=== PATIENT | female | born 1975 | race Caucasian/White ===

== ENCOUNTER 2017-08-13 23:58 | Emergency (ER) | payer OTHER ==
[2017-08-14] MEDS ORDERED: Morphine VIAL* 4 MG/ML VIAL (1 ml vial) IV PRN (01:09)
[2017-08-14] MEDS ORDERED: NS 0.9% 1000 ML* 1,000 ML IV ONE (01:09)
[2017-08-14] MEDS ORDERED: Metoclopramide IV* 5 MG/ML 2 ML VIAL IV ONE (01:09)
[2017-08-14 01:30] LABS: ABS Basophils 0 10^3/ul (0-0.2); ABS Eosinophils 0.1 10^3/ul (0-0.6); ABS Lymphocytes 1.4 10^3/ul (1.0-4.8); ABS Monocytes 0.5 10^3/ul (0-0.8); ABS Neutrophils 3.9 10^3/ul (1.5-7.7); ABS Nucleated RBC 0 10^3/ul; Hematocrit 37 % (35-47); Hemoglobin 12.4 g/dl (12.0-16.0); Lymphocyte % 24.3 % (25-47); Mean Corpuscular HGB Conc 34 g/dl (31-36); Mean Corpuscular Hemoglobin 31 pg (27-31); Mean Corpuscular Volume 90 fL (80-97); Mean Platelet Volume 8.4 um3 (7.4-10.4); Nucleated Red Blood Cells % 0; Platelet Count 243 10^3/ul (150-450); Red Blood Count 4.06 10^6/ul (4.0-5.4); Red Cell Distribution Width 14 % (10.5-15)
[2017-08-14 01:39] LABS: INR 0.88 (0.77-1.02)
[2017-08-14 01:48] LABS: EGFR Non-African American 70.1 (>60)
[2017-08-14 02:27] LABS: Urine Appearance Clear; Urine Blood Negative (Negative); Urine Color Yellow; Urine Ketones Negative (Negative); Urine Protein Negative (Negative); Urine Specific Gravity 1.013 (1.010-1.030); Urine Urobilinogen Negative (Negative)
[2017-08-14] MEDS ORDERED: Iohexol 300* (CONTRAST) 10 ML SDV IV ONE (03:47)
[2017-08-14 06:36] VITALS: BP 104/68
--- NOTE | 2017-08-14 06:39 | ED ---
Stef Damon Rebecca, scribed for Gustavo Alvarez MD on 08/14/17 at 0111 . Abdominal Pain/Female - HPI Summary HPI Summary: Pt is a 42 y/o F who presents to ED c/o abdominal pain. 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 Pain is in the umbilical region with occasional radiation upward and waxes and wanes in intensity. Sx aggravated and alleviated by nothing. Additionally c/ o nausea. Denies vomiting and dysuria. PSHx uterine ablation and C-sections x2. - History of Current Complaint Chief Complaint: EDAbdPain Stated Complaint: ABD PAIN Time Seen by Provider: 08/14/17 01:01 Hx Obtained From: Patient Hx Last Menstrual Period: 09/07/12 Onset/Duration: Lasting Hours, Still Present Severity Currently: Severe Pain Intensity: 9 Pain Scale Used: 0-10 Numeric Location: Umbilical Radiates: Yes Radiates to: Other - Upward Aggravating Factor(s): Nothing Alleviating Factor(s): Nothing Associated Signs and Symptoms: Positive: Nausea. Negative: Vomiting Allergies/Adverse Reactions: Allergies Allergy/AdvReac Type Severity Reaction Status Date / Time No Known Allergies Allergy Verified 08/14/17 00:04 PMH/Surg Hx/FS Hx/Imm Hx Endocrine/Hematology History: Denies: Hx Diabetes, Hx Thyroid Disease Cardiovascular History: Denies: Hx Hypertension Respiratory History: Denies: Hx Asthma, Hx Chronic Obstructive Pulmonary Disease (COPD) GI History: Denies: Hx Ulcer - Surgical History Surgery Procedure, Year, and Place: 2 C Sections - Immunization History Date of Tetanus Vaccine: utd Date of Influenza Vaccine: none Infectious Disease History: No Infectious Disease History: Denies: Hx Hepatitis, Hx Human Immunodeficiency Virus (HIV), Traveled Outside the [place] in Last 30 Days - Family History Known Family History: Positive: Diabetes - Social History Alcohol Use: Occasionally Substance Use Type: Reports: None Smoking Status (MU): Unknown if Ever Smoked Review of Systems Positive: Abdominal Pain, Nausea. Negative: Vomiting Negative: dysuria All Other Systems Reviewed And Are Negative: Yes Physical Exam - Summary Physical Exam Summary: VITAL SIGNS: Reviewed. GENERAL: ~Patient is a well-developed and nourished female who is lying comfortable in the stretcher. Patient is not in any acute respiratory distress. HEAD AND FACE: No signs of trauma. No ecchymosis, hematomas or skull depressions. No sinus tenderness. EYES: PERRLA, EOMI x 2, No injected conjunctiva, no nystagmus. EARS: Hearing grossly intact. Ear canals and tympanic membranes are within normal limits. MOUTH: Oropharynx within normal limits. NECK: Supple, trachea is midline, no adenopathy, no JVD, no carotid bruit, no c- spine tenderness, neck with full ROM. CHEST: Symmetric, no tenderness at palpation LUNGS: Clear to auscultation bilaterally. No wheezing or crackles. CVS: Regular rate and rhythm, S1 and S2 present, no murmurs or gallops appreciated. ABDOMEN: Soft, hypogastrium tenderness. No signs of distention. No rebound no guarding, and no masses palpated. Bowel sounds are normal. EXTREMITIES: FROM in all major joints, no edema, no cyanosis or clubbing. NEURO: Alert and oriented x 3. No acute neurological deficits. Speech is normal and follows commands. SKIN: Dry and warm Triage Information Reviewed: Yes Vital Signs On Initial Exam: Initial Vitals Temp Pulse Resp BP Pulse Ox 98.6 F 78 16 134/89 98 08/14/17 00:00 08/14/17 00:00 08/14/17 00:00 08/14/17 00:00 08/14/17 00:00 Vital Signs Reviewed: Yes Diagnostics - Vital Signs Vital Signs Temp Pulse Resp BP Pulse Ox 08/14/17 00:00 98.6 F 78 16 134/89 98 - Laboratory Result Diagrams: 08/14/17 01:22 08/14/17 02:46 Lab Statement: Any lab studies that have been ordered have been reviewed, and results considered in the medical decision making process. - CT CT Abd/Pel CT Interpretation Completed By: Radiologist - Ill-defined soft tissue density right posterior cul-de-sac, question complex physiologic free fluid versus a portion of left or right ovary. 4.8 cm probably left ovarian cyst, 1.7 cm dominant follicle right ovary. Consider ultrasound correlation. No bowel obstruction, colitis, free fluid or free air. Normal appendix. Non remarkable pancreas, kidneys, and gallbladder. Small splenic cyst or hemangioma. Small umbilical hernia containing fat. ED physician reviewed this radiology report. Pending official report. - Ultrasound No standard instances Ultrasound Interpretation Completed By: Radiologist - Pelvic US: No ovarian torsion. Color flow with appropriate arterial and venous waveforms. 3.9 cm and 2.5 cm cysts left ovary. 1.9 cm dominant follicle right ovary. No free fluid. Leiomyomatous uterus. Endometrial stripe complex 5 mm thick. ED physician reviewed this radiology report. Pending official report. Re-Evaluation - Re-Evaluation First Eval Re-Evaluation Time: 06:23 Change: Improved Comment: Pt is doing well. Discussed results and D/C plan. 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 Additionally c/o nausea. Denies vomiting and dysuria. PSHx uterine ablation and C-sections x2. Blood work and UA were done. UA is negative for UTI. CT abd/pel and pelvic US reveal ovarian cysts. In the ED course pt received reglan, morphine and fluids. Sx have improved. Pt will be D/C to home with Dx of ovarian cysts with Rx for Percocet. She understands and agrees. - Diagnoses Provider Diagnoses: Ovarian cyst Discharge - Sign-Out/Discharge Documenting (check all that apply): Discharge/Admit/Transfer - Discharge - Discharge Plan Condition: Stable Disposition: HOME Prescriptions: oxyCODONE/Acetamin 5/325 MG* [Percocet 5/325 TAB*] 1 tab PO Q6H PRN #14 tab MDD 4 PRN Reason: Pain Patient Education Materials: Ovarian Cyst (ED) Referrals: Jose Daniel Cuevas MD [Primary Care Provider] - 3 Days Additional Instructions: RETURN TO ED FOR ANY NEW OR WORSENING SYMPTOMS. The documentation as recorded by the Stef sandoval Rebecca accurately reflects the service I personally performed and the decisions made by , Gustavo Alvarez MD.
--- NOTE | 2017-08-14 08:41 | RAD ---
CLINICAL HISTORY: Abdominal pain COMPARISON: December 02, 2008 TECHNIQUE: Multiple contiguous axial CT scans were obtained of the abdomen and pelvis after the administration of intravenous contrast. Coronal and sagittal multiplanar reformations are submitted for review. Oral contrast was not administered. Delayed images were obtained through the abdomen. FINDINGS: LUNG BASES: The lung bases are clear. LIVER: The liver is normal in shape, size, contour, and attenuation. BILE DUCTS: There is no intrahepatic or extrahepatic biliary dilatation. GALLBLADDER: The gallbladder is normal, without pericholecystic inflammatory change. PANCREAS: The pancreas is normal, without mass or ductal dilatation. SPLEEN: There is low-attenuation lesion of the spleen suggestive of small cyst versus hemangioma. UPPER GI TRACT: Evaluation of the gastrointestinal tract is limited by incomplete gastric distention. The upper GI tract is unremarkable. SMALL BOWEL AND MESENTERY: The small bowel is normal in contour, course, and caliber. There is no obstruction or dilatation. COLON: The colon is normal in contour, course, caliber. There is no pericolonic inflammatory change. There is a tubular, vermiform, hollow viscus that is blind ending, and originates from the cecum, consistent with a normal appendix. There is no periappendiceal inflammatory change. This is best seen on coronal image 54 through 57. ADRENALS: Normal bilaterally. KIDNEYS: The kidneys are normal in shape, size, contour, and axis. There is no hydronephrosis or nephrolithiasis. BLADDER: The bladder is smooth in contour. PELVIC ORGANS: The uterus is heterogeneous with multiple low-attenuation lesions. There is cervical thickening. There is a 4.9 cm cystic lesion of the left hemipelvis. There is a 1.4 cm right ovarian cyst. There is small amount of free fluid within the pelvis. AORTA: The aorta is normal. IVC: Unremarkable LYMPH NODES: There is no lymphadenopathy by size criteria. ABDOMINAL WALL: There is no evidence for abdominal wall hernia. BONES AND SOFT TISSUES: There are mild diffuse degenerative changes. OTHER: None IMPRESSION: THE UTERUS IS HETEROGENEOUS WITH MULTIPLE LOW-ATTENUATION LESIONS. WHILE THIS MAY BE SECONDARY TO UTERINE FIBROIDS, THERE IS ALSO APPARENT THICKENING OF THE CERVIX. ADDITIONALLY, THERE ARE LOCULATED FLUID COLLECTIONS BILATERALLY CONSISTENT WITH AN OVARIAN CYST ON THE RIGHT AND A POSSIBLE LEFT OVARIAN CYST VERSUS LEFT HYDROSALPINX. THIS IS INCOMPLETELY EVALUATED ON THE CURRENT EXAMINATION. RECOMMEND CORRELATION WITH PHYSICAL EXAMINATION AND CONSIDERATION OF DEDICATED IMAGING OF THE PELVIS INCLUDING ULTRASOUND.
--- NOTE | 2017-08-14 08:52 | RAD ---
HISTORY: Torsion, right-sided pain COMPARISONS: CT dated August 14, 2012, ultrasound dated December 02, 2008 TECHNIQUE: Multiple transverse and longitudinal ultrasound images were obtained of the pelvis using grayscale, color Doppler, and spectral Doppler imaging using the endovaginal transducer. FINDINGS: UTERUS: The uterus measures 10 x 5.7 x 6.3 cm. The uterus is heterogeneous in echotexture with multiple small fibroids. ENDOMETRIUM: The endometrial stripe is smooth. The endometrium measures 0.5 cm in thickness. CUL-DE-SAC: There is no free fluid within the cul-de-sac. RIGHT OVARY: The right ovary measures 3.1 x 1.9 x 3.1 cm. Multiple follicles are noted including a 1.3 x 1.9 x 1. cm simple ovarian cyst. Normal arterial and venous waveforms are identifiable within the ovary on spectral Doppler imaging. LEFT OVARY: The left ovary measures 5.5 x 2.8 x 5.6 cm. There are 2 adjacent left ovarian cysts measuring 2.8 x 2.6 x 2.1 cm and 3.9 x 2.4 x 3.4 cm in size respectively corresponding to the fluid collection noted on CT. Normal arterial and venous waveforms are identifiable within the ovary on spectral Doppler imaging. BLADDER: The bladder is not well visualized. OTHER: None IMPRESSION: 1. NO SONOGRAPHIC FEATURES OF TORSION. PLEASE NOTE THAT PARTIAL OR INTERMITTENT TORSION MAY BE SONOGRAPHICALLY NORMAL. 2. THE UTERUS IS HETEROGENEOUS CONSISTENT WITH A FIBROID UTERUS. THIS APPEARS TO ACCOUNT FOR THE FINDINGS NOTED ON CT. THE CERVIX IS NOT WELL EVALUATED. AGAIN RECOMMEND CORRELATION WITH PHYSICAL EXAMINATION OF THE CERVIX IN THE NONACUTE SETTING. 3. BILATERAL OVARIAN CYSTS, MEASURING UP TO 3.9 CM. THESE APPEAR TO ACCOUNT FOR THE CT FINDINGS.
== END 2017-08-14 06:35 | disposition home or self-care (01) ==
LOC: ED 23:58
DX: N83.209 Unspecified ovarian cyst, unspecified side (principal); R11.0 Nausea; R10.9 Unspecified abdominal pain
CPT/HCPCS: 36415; 74177; 76830; 80053; 81003; 82150; 83605; 83690; 83735; 84702; 85025; 85610; 85730; 86140; 96374; 96375; 99283; J2270; J2765; Q9967